=== PATIENT | female | born 1975 | race African-American/Black ===

== ENCOUNTER 2024-01-11 19:13 | Emergency (ER) | payer MEDICAID, OTHER ==
[~2024-01-11] VITALS: Ht 170.2 cm; Wt 270.0 kg
[2024-01-11 19:53] VITALS: BP 112/77; PULSE 86; RESP 16; TEMP 97.9; O2SAT 99
[2024-01-11] MEDS ORDERED: IBUPROFEN 400MG TABLET PO ONE (20:00)
[2024-01-11] MEDS ORDERED: ACETAMINOPHEN 325MG TABLET PO ONE (20:00)
[2024-01-11 20:25] LABS: BASOPHILS % 0.5 % (0.0-2.0); EOSINOPHILS % 1.7 % (0.0-5.0); HEMATOCRIT. 38.9 % (36.0-48.0); HEMOGLOBIN. 13.3 g/dL (12.0-16.0); LYMPHOCYTES % 26.5 % (20.0-50.0); MEAN CORPUSCULAR HEMOGLOBIN 27.9 pg (28.0-32.0); MEAN CORPUSCULAR HGB CONC 34.2 g/dL (31.0-37.0); MEAN CORPUSCULAR VOLUME 81.5 fL (81.0-99.0); MEAN PLATELET VOLUME 7.9 fl (7.4-10.4); MONOCYTES % 5.6 % (2.0-8.0); NEUTROPHILS % 65.7 % (40.0-76.0); PLATELET 292 x1000/uL (130-400); RED BLOOD CELL COUNT 4.77 mill/uL (4.2-5.4); RED CELL DISTRIBUTION WIDTH 15.1 % (11.6-14.6); WHITE BLOOD COUNT 10.2 x1000/uL (4.5-11.0)
[2024-01-11 20:39] LABS: HCG SCREEN NEGATIVE
[2024-01-11 20:44] LABS: CHLORIDE 104 mEq/L (98-107); POTASSIUM 4.2 mEq/L (3.5-5.1); SODIUM 138 mEq/L (136-145)
[2024-01-11 20:46] LABS: CALCIUM 10.6 mg/dL (8.7-10.4); CARBON DIOXIDE 28 mEq/L (21-32)
[2024-01-11 20:51] LABS: CREATININE 1.1 mg/dL (0.6-1.0); GLUCOSE 85 mg/dL (70-105)
[2024-01-11 20:52] LABS: UREA NITROGEN BLOOD 12 mg/dL (9-23)
[2024-01-11 20:53] LABS: ALANINE AMINOTRANSFERASE 36 IU/L (10-49); ALBUMIN 4.6 g/dL (3.2-4.8); ASPARTATE AMINOTRANSFERASE 72 IU/L (<34)
[2024-01-11 20:54] LABS: BILIRUBIN DIRECT 0.1 mg/dL (<=3.0); BILIRUBIN TOTAL 0.4 mg/dL (0.1-1.0); PROTEIN TOTAL 8.3 g/dL (6.0-8.3)
[2024-01-11] MEDS ORDERED: KETOROLAC 60MG/2ML VIAL IM ONE (23:30)
[2024-01-11 23:59] LABS: CLARITY URINE CLEAR (CLEAR); COLOR URINE YELLOW (YELLOW); GLUCOSE URINE NEGATIVE (NEGATIVE); KETONES URINE 1+ (NEGATIVE); LEUKOCYTE ESTERASE URINE NEGATIVE (NEGATIVE); NITRITE URINE NEGATIVE (NEGATIVE); OCCULT BLOOD URINE NEGATIVE (NEGATIVE); PROTEIN URINE NEGATIVE (NEGATIVE); SPECIFIC GRAVITY URINE 1.016 (1.005-1.030); UROBILINOGEN URINE 0.2 E.U./dL (0.2-1.0)
[2024-01-12] MEDS ORDERED: KETOROLAC 60MG/2ML VIAL IM NR (00:45)
[2024-01-12] MEDS ORDERED: IBUPROFEN 400MG TABLET PO NR (00:45)
[2024-01-12] MEDS ORDERED: ACETAMINOPHEN 325MG TABLET PO NR (00:45)
== END 2024-01-12 02:18 | disposition home or self-care (01) ==
LOC: ER 19:13
DX: K57.30 Diverticulosis of large intestine without perforation or abscess without bleeding (principal)
CPT/HCPCS: 99284; 74176; 80076; 80048; 81003; 84703; 83690; 85025; 36415; J1885

== ENCOUNTER 2024-08-29 10:20 | Emergency (ER) | payer OTHER ==
[~2024-08-29] VITALS: Ht 167.6 cm; Wt 120.0 kg
[2024-08-29 10:41] VITALS: O2SAT 100
[2024-08-29] MEDS ORDERED: ACET-2708 MT (11:51)
[2024-08-29] MEDS: DEXAMETHASONE 10 MG/ML VIAL IM ONE (12:51)
[2024-08-29 12:54] VITALS: BP 151/88; PULSE 87; RESP 16; TEMP 36.89184; O2SAT 100
== END 2024-08-29 12:55 | disposition home or self-care (01) ==
LOC: ER 10:20
DX: M79.641 Pain in right hand (principal)
CPT/HCPCS: 99283; 73130; 96372; J1100